=== PATIENT | male | born 1970 | race Caucasian/White ===

== ENCOUNTER 2017-01-23 15:15 | Inpatient (IN) | payer OTHER ==
--- NOTE | ~2017-01-23 | HP ---
History And Physical [place] [id number] [facility] [place]. [address] NAME: KAYLEN SULLIVAN : 72 STATUS : ADM IN [facility]#: [id number] AGE: 46 ADM/REG DATE : 01/23/17 MR#: [id number] REPORT SERV DATE: 01/24/17 DICTATED BY: IRINA RUVALCABA DATE: 01/23/17 REPORT STATUS : Draft TRANSCRIBED BY: MODL DATE: 01/23/17 DATE OF ADMISSION: 01/23/2017 Please note that there was an already a handwritten note that was on the chart prior to the patient being brought to surgery, but I would like to have it in verbally dictated form as well. CHIEF COMPLAINT: Dog attack earlier today at 8:30 hours with multiple injuries, right upper extremity. HISTORY OF PRESENT ILLNESS: Kaylen Sullivan is a 46-year-old tycdj-fozp-nyadnhnw male, disabled secondary to multiple medical problems, including several psychiatric diseases including bipolar and schizophrenia. Earlier today, he was at a bus stop with his girlfriend and their common daughter when he was attacked by his girlfriend's brother's half pit bull half Kendrick dog. He sustained multiple bites about the right upper extremity and the lower lumbar area (scratches) and was immediately brought himself to [facility] where he waited in the ER waiting room until mid afternoon. He then left and came immediately to [facility] where he was quickly seen. His tetanus has already been updated. He was given IV antibiotics. He states that he is not a diabetic anymore, but his blood sugars upon arrival were over 200. He could not move his fingers and had loss of sensation of small fingers. No previous injuries to his right upper extremity. PAST MEDICAL HISTORY: 1. Schizophrenia. 2. Bipolar II. 3. Hypertension. 4. For history of diabetes. 5. Inflammatory bowel disease. 6. Obstructive sleep apnea with CPAP. 7. COPD. 8. Tobacco abuse, was smoking 1-1/2 packs a day, now down to half pack per day. PAST SURGICAL HISTORY: C-spine multi level ACDF. REVIEW OF SYSTEMS: See past medical history, past surgical history. Otherwise, negative for recent constitutional symptoms such as weight gain or weight loss, fever or chills, bleeding problems, increased thirst or lethargy, increased polydipsia or polyuria. Denies chest pain, shortness of breath, or productive cough. ALLERGIES: NO KNOWN DRUG ALLERGIES. SOCIAL HISTORY: Smokes a half pack per day. Does not work. Does engage in strenuous activities. PHYSICAL EXAMINATION: History And Physical [address] [place]. [address] NAME: KAYLEN SULLIVAN : 72 STATUS : ADM IN [facility]#: [id number] AGE: 46 ADM/REG DATE : 01/23/17 MR#: [id number] REPORT SERV DATE: 01/24/17 DICTATED BY: IRINA RUVALCABA DATE: 01/23/17 REPORT STATUS : Draft TRANSCRIBED BY: CRICKET DATE: 01/23/17 GENERAL: A 46-year-old male lying in bed, in mild distress. VITAL SIGNS: Blood pressure 123/84, heart rate 89, respiratory rate 20, temperature 36.9, O2 saturation on room air 95%. HEENT: Wears corrective lenses. Teeth in poor repair. C-spine with well-healed anterior incision used for anterior ACDF left side of the neck. Limited range of motion. The left shoulder elbow, wrist, and all fingers have functional range of motion while the right upper extremity is held close to the body. The bandages were taken off the arms and there are multiple dog bites up from the proximal arm down into the forearm and palm. There is dried blood on the deeper dressings and these could not be removed without severe pain and therefore attempt to remove them were aborted. Nonetheless, he had multiple lacerations on the back of his hand and in the volar forearm with one leading into the index finger and one leading into the ring/middle finger from both in the mid palm areas. There is very limited if any active finger flexion and all fingers with decreased sensation. There is one large horizontal laceration in the volar forearm some 5 cm to 7 cm proximal to the volar wrist crease and this is horizontal and there is muscle fiber sticking out of this wound. The TLS spine has wounds on the lumbar areas which are keeping with abrasions, but no open cuts. The lower extremities are spared with no significant cuts, but some abrasions present. Both hips, knees, and ankles are nontender to palpation and no pain with passive range of motion. X-rays two views of the right forearm shows no retained animal teeth or foreign body. LABS: WBC 16, H and H is 15.9 and 43.7, platelets 177. Electrolytes sodium 143, potassium 3.9, chloride 109, bicarbonate 24, BUN 17, creatinine 1.22, blood glucose 221. IMPRESSION: Dog bite, right upper extremity, multiple sites with possible nerve, artery, and definitely muscle damage. PLAN: The patient will need to undergo irrigation and debridement of wounds and repair any damaged artery, nerves, or muscle. However, it is already many hours out from the initial injury and so he will need to stay overnight for some IV antibiotics. CONSULT: Hospitalist to help manage elevated blood glucose levels noted on admission labs. JOANNE/PENNYL Irina Ruvalcaba M.D. / [id number] CC: Irina Ruvalcaba M.D.
--- NOTE | ~2017-01-23 | OP ---
Record Of Operation [facility] [address] [place]. [address] NAME: KAYLEN PENALOZA : 72 STATUS : ADM IN PAT#: [id number] AGE: 46 ADM/REG DATE : 01/23/17 MR#: [id number] REPORT SERV DATE: 01/24/17 DICTATED BY: IRINA RUVALCABA DATE: 01/23/17 REPORT STATUS : Draft TRANSCRIBED BY: MODL DATE: 01/23/17 DATE OF PROCEDURE: 01/23/2017 DIAGNOSIS: Dog attack with multiple upper extremity wounds. PROCEDURE: Right upper extremity multiple dog bite wounds exploration and irrigation and debridement. All wounds penetrated into muscle area: Arm (triceps). Forearm: Volarly, FCU muscle belly and dorsally common extensor muscles. Hand: Palmar lumbrical muscles to the index and middle finger, palmarly and dorsally the interosseous muscles. Irrigation and debridement of all wounds and wound closure: Arm lacerations: Posterior medially 7 cm, posterior lateral 5 cm. Forearm: Volar 2 cm, dorsal 1.5 cm. Hand: Palmar 4 and 7 cm, dorsal 3 cm. Irrigation of right lower lumbar abrasions. PHYSICIAN: Irina Ruvalcaba M.D. HAND EDGER: Sreena. ANESTHESIA: General. ESTIMATED BLOOD LOSS: 50 mL. COMPLICATIONS: None. DISPOSITION: The patient tolerated the procedure well, was brought to recovery room in stable condition. PROCEDURE NOTE: The patient was brought to the operating room and placed in supine position. After general anesthesia was administered, the right upper extremity was prepped and draped in usual sterile manner. A surgical timeout was performed and all were in agreement. The wounds were then all irrigated with normal saline via pulse lavage, and some of the wounds needed to be lengthened both proximally and distally for further evaluation. Retractors were placed and in the arm, the posterior medial and posterior lateral triceps were partially cut and in the forearms, the FCU volarly and the common extensor muscles dorsally were cut. These muscles were debrided with pickup and scissors. In the palm, the interosseous muscles to the index and middle finger were debrided and dorsally the interosseous muscles of the middle ring and middle index fingers were irrigated and debrided. Afterwards exploration of the wounds revealed an intact median nerve and a slightly bruised ulnar nerve. The vessels on the volar forearm were also intact. Distally, the digital nerves were all intact and no flexor tendons appear to be involved. After irrigating and debriding each wound, the wounds were then loosely closed with the nylon suture and a sterile bulky dressing was applied. A volar splint was applied to the forearm and the arm was later placed in a sling. The patient was then moved over onto his left lateral decubitus position where the posterior abrasions were then irrigated and cleaned, Record Of Operation [place] [id number] [facility] [place] [place]. [address] NAME: KAYLEN PENALOZA : 72 STATUS : ADM IN [facility]#: [id number] AGE: 46 ADM/REG DATE : 01/23/17 MR#: [id number] REPORT SERV DATE: 01/24/17 DICTATED BY: IRINA RUVALCABA DATE: 01/23/17 REPORT STATUS : Draft TRANSCRIBED BY: CRICKET DATE: 01/23/17 and then bandage were applied. The patient was then put back in the supine position and after general anesthesia was removed, the patient was ready to be brought to recovery room, having tolerated the procedure quite well. JOANNE/CRICKET Irina Ruvalcaba M.D. / [id number] CC: Irina Ruvalcaba M.D.
--- NOTE | ~2017-01-23 | CN ---
Consultation Report [facility] [address] [place]. [address] NAME: KAYLEN PENALOZA : 72 STATUS : ADM IN [facility]#: [id number] AGE: 46 ADM/REG DATE : 01/23/17 MR#: [id number] REPORT SERV DATE: 01/24/17 DICTATED BY: ERICA FERRELL DATE: 01/23/17 REPORT STATUS : Draft TRANSCRIBED BY: MODL DATE: 01/23/17 CONSULTATION REPORT DATE OF CONSULTATION: 01/23/2017 REASON FOR CONSULTATION: Hypertension and diabetes management. HISTORY OF PRESENT ILLNESS: This is a pleasant 46-year-old gentleman with a history of hypertension, diabetes mellitus type 2, and COPD with ongoing tobacco use who presents today with extensive injuries from multiple dog bites. He reports severe injuries and lacerations to right upper extremity from hand all the way up to the axillary region. The patient underwent irrigation and debridement of right upper extremity with artery and tendon repair per Dr. Guerra today. The patient currently complains of pain to right upper extremity, which is not being controlled with current analgesic regimen. He denies fever or chills. He denies shortness of breath. He actually denies any complaints except severe pain to right upper extremity. Hospitalist service was consulted for medical management. Please note, the patient denies having a primary care provider, but reports multiple medical problems, none of which are currently being treated. PAST MEDICAL HISTORY: Bipolar disorder, depression, PTSD, irritable bowel disease, hypertension, schizophrenia, obstructive sleep apnea, compliant with CPAP, COPD, tobacco dependency disorder, and diabetes mellitus type 2. PAST SURGICAL HISTORY: An anterior cervical diskectomy and fusion (ACDF). ALLERGIES: NO KNOWN DRUG ALLERGIES. HOME MEDICATIONS: The patient denies taking any home medications. SOCIAL HISTORY: He lives with girlfriend. Smokes approximately 1-1.5 packs of cigarettes daily for 38 years. He does report that he started smoking at the age of 8. Denies alcohol or illicit drug use. He is disabled. FAMILY HISTORY: Significant for diabetes mellitus. Negative for hypertension, coronary artery disease, or CVA. REVIEW OF SYSTEMS: A complete review of systems was obtained and is negative except as noted in past and present history. PHYSICAL EXAMINATION: VITAL SIGNS: Please note these vital signs were obtained preoperatively at 1345 hours. Blood pressure 123/84, pulse 89, respirations 20, temperature 98.5, and oxygen saturation 95% on room air. Consultation Report [place] [id number] [place]. [address] NAME: KAYLEN PENALOZA : 72 STATUS : ADM IN PAT#: [id number] AGE: 46 ADM/REG DATE : 01/23/17 MR#: [id number] REPORT SERV DATE: 01/24/17 DICTATED BY: ERICA FERRELL DATE: 01/23/17 REPORT STATUS : Draft TRANSCRIBED BY: CRICKET DATE: 01/23/17 GENERAL: Reveals a well-developed, well-nourished white male. Lying in bed, in no acute distress. He does appear to be uncomfortable and displays some grimacing secondary to pain and discomfort of right upper extremity. He is alert and oriented. He is pleasant and cooperative with examination. HEENT: Head: Normocephalic, atraumatic. Pupils equal, round, reactive to light. Extraocular muscles intact. Sclerae anicteric. Oropharynx crowded and difficult to assess but appears clear. Moist oral mucosa noted. NECK: Supple. No jugular venous distention appreciated. RESPIRATORY: Lungs clear to auscultation anteriorly but diminished at bilateral bases. Respirations even and nonlabored on room air. CARDIOVASCULAR: S1 and S2 noted. Mildly tachycardic but regular. No murmur, rub, or gallop appreciated. ABDOMEN: Obese. Soft, nontender, nondistended. Normoactive bowel sounds. EXTREMITIES: No clubbing, cyanosis, or edema noted to bilateral lower extremities. Palpable pedal pulses bilaterally. Unable to assess right upper extremity due to it being wrapped from hand up to axilla and in sling. SKIN: Warm and dry. Good color. Again, unable to assess multiple lacerations, as they are all dressed. NEUROLOGIC: Alert and oriented x3. Unable to assess right upper extremity function. Formal gait not assessed. PSYCH: Appropriate mood and affect. LABORATORY AND DIAGNOSTIC DATA: WBC 13491, hemoglobin 15.9, hematocrit 43.7, and platelets 177,000. Protime 13.2 and INR 1.0 respectively. Comprehensive metabolic panel within normal limits with the exception of elevated glucose at 221. Portable chest x-ray; no acute cardiopulmonary abnormality noted. Right forearm x-ray shows soft tissue gas in the region of injury without fracture or radio- opaque foreign body. No EKG or urinalysis available. IMPRESSION: 1. Multiple dog bites with most extensive lacerations to right upper extremity, status post irrigation and debridement per Orthopedic Surgery today. 2. Acute, postoperative right upper extremity pain. 3. Diabetes mellitus type 2 with hyperglycemia. 4. Hypertension. 5. Leukocytosis likely secondary to multiple dog bites with most extensive lacerations to right upper extremity, status post irrigation and debridement per Orthopedic Surgery today. 6. Tachycardia likely secondary to pain. Consultation Report [place] [id number] [facility] [place]. [address] NAME: KAYLEN PENALOZA : 72 STATUS : ADM IN [facility]#: [id number] AGE: 46 ADM/REG DATE : 01/23/17 MR#: [id number] REPORT SERV DATE: 01/24/17 DICTATED BY: ERICA FERRELL DATE: 01/23/17 REPORT STATUS : Draft TRANSCRIBED BY: CRICKET DATE: 01/23/17 7. Chronic obstructive pulmonary disease appears stable with ongoing tobacco dependency disorder. 8. Obstructive sleep apnea compliant with CPAP with probable obesity hypoventilation syndrome. 9. History of bipolar disorder/schizophrenia/depressions/post-traumatic stress disorder, untreated. 10.Medical noncompliance. 11.Obesity. PLAN: The patient will be monitored via telemetry. We will monitor glucose and give insulin per sliding scale. I will check hemoglobin A1c, procalcitonin, a BNP, and urinalysis as well as an EKG. CPAP per respiratory therapy, as the patient left his at home. Oxygen support and bronchodilation per protocol. Nicotine and electrolyte replacement per protocol. I have ordered p.r.n. IV antihypertensive for elevated blood pressure, which appears to be controlled at this time. I will order PA and lateral chest x-ray in the morning given hypoxia and leukocytosis. I will defer anticoagulation/DVT prophylaxis to Orthopedic Surgery. Case Management consulted to assist with discharge planning needs, including establishing primary care provider. ANNETTA/CRICKET Erica Ferrell NP / [id number] CC: Stan Guerra M.D.
[2017-01-23 14:50] LABS: BASOPHILS 0 %; EOSINOPHILS 0 %; ER CBC TAT 0 Hrs 08 Mins; HEMATOCRIT 43.7 % (40.0-51.0); HEMOGLOBIN 15.9 g/dL (13.6-17.8); IMMATURE GRANULOCYTES 0.2 %; IMMATURE GRANULOCYTES ABSOLUTE 0.03 10/3/uL (0.0-0.11); LYMPHOCYTES 8.9 %; LYMPHOCYTES ABSOLUTE 1.45 10/3/uL (0.67-4.30); MEAN CORPUS HGB CONC 36.4 g/dL (32.0-36.0); MEAN CORPUSCULAR HEMOGLOB 31.2 pg (26.0-34.0); MEAN CORPUSCULAR VOLUME 85.7 fL (80-100); MONOCYTES 3.1 %; MONOCYTES ABSOLUTE 0.51 10/3/uL (0.21-1.20); NEUTROPHILS 87.8 %; NEUTROPHILS ABSOLUTE 14.34 10/3/uL (2.02-8.40); PLATELET COUNT 177 10/3/uL (150-400); RBC DISTRIBUTION WIDTH 13.1 % (12.0-16.0); WHITE BLOOD CELLS 16.3 10/3/uL (4.5-10.5)
[2017-01-23 14:51] LABS: MANUAL DIFF NO %
[2017-01-23 14:58] LABS: PARTIAL THROMBO TIME 23.4 SEC (22.5-37.2); PROTIME (NOT ORD) 13.2 SEC (12.0-14.5)
[2017-01-23 15:06] LABS: A/G RATIO 1.1 (0.7-1.9); ALBUMIN 4.2 G/DL (3.5-5.0); ALKALINE PHOSPHATASE 78 U/L (45-117); BUN (BLOOD UREA NITROGEN) 17 MG/DL (6-23); CALCIUM, SERUM 9.4 MG/DL (8.5-10.4); CHLORIDE, SERUM 109 MMOL/L (96-112); CO2 (CARBON DIOXIDE) 24 MMOL/L (24-34); CREATININE 1.22 MG/DL (0.70-1.30); GFR AFRICAN AMERICAN 82 ML/MIN (>=60); GFR NON AFRICAN AMERICAN 71 ML/MIN (>=60); GLOBULIN 3.7 G/DL (2.5-4.1); GLUCOSE, SERUM 221 MG/DL (60-99); POTASSIUM, SERUM 3.9 MMOL/L (3.5-5.3); SGOT(AST) 24 U/L (5-40); SGPT(ALT) 52 U/L (5-65); SODIUM, SERUM 143 MMOL/L (135-148); TOTAL BILIRUBIN 0.7 MG/DL (0-1.2); TOTAL PROTEIN 7.9 G/DL (6.0-8.5)
[2017-01-24 01:45] LABS: PROCALCITONIN <0.05 ng/mL (<0.5)
[2017-01-24 05:44] LABS: BASOPHILS 0.1 %; BASOPHILS ABSOLUTE 0.01 10/3/uL (0.0-0.16); EOSINOPHILS 0 %; HEMATOCRIT 40.8 % (40.0-51.0); HEMOGLOBIN 14.5 g/dL (13.6-17.8); IMMATURE GRANULOCYTES 0.2 %; IMMATURE GRANULOCYTES ABSOLUTE 0.02 10/3/uL (0.0-0.11); LYMPHOCYTES 17.3 %; LYMPHOCYTES ABSOLUTE 1.94 10/3/uL (0.67-4.30); MEAN CORPUS HGB CONC 35.5 g/dL (32.0-36.0); MEAN CORPUSCULAR HEMOGLOB 30.9 pg (26.0-34.0); MEAN CORPUSCULAR VOLUME 86.8 fL (80-100); MEAN PLATELET VOLUME 10.6 fL (9.2-13.0); MONOCYTES 8.5 %; MONOCYTES ABSOLUTE 0.95 10/3/uL (0.21-1.20); NEUTROPHILS 73.9 %; NEUTROPHILS ABSOLUTE 8.27 10/3/uL (2.02-8.40); PLATELET COUNT 169 10/3/uL (150-400); RBC DISTRIBUTION WIDTH 13.1 % (12.0-16.0); WHITE BLOOD CELLS 11.2 10/3/uL (4.5-10.5)
[2017-01-24 05:47] LABS: MANUAL DIFF NO %
[2017-01-24 05:59] LABS: BUN (BLOOD UREA NITROGEN) 11 MG/DL (6-23); CALCIUM, SERUM 8.9 MG/DL (8.5-10.4); CHLORIDE, SERUM 106 MMOL/L (96-112); CO2 (CARBON DIOXIDE) 25 MMOL/L (24-34); CREATININE 0.93 MG/DL (0.70-1.30); GFR AFRICAN AMERICAN 115 ML/MIN (>=60); GFR NON AFRICAN AMERICAN 99 ML/MIN (>=60); GLUCOSE, SERUM 147 MG/DL (60-99); PHOSPHORUS, SERUM 2.8 MG/DL (2.5-4.5); POTASSIUM, SERUM 3.8 MMOL/L (3.5-5.3); SODIUM, SERUM 140 MMOL/L (135-148)
[2017-01-24 06:44] LABS: B NATRIURETIC PEPTIDE (BNP) 17.1 PG/ML (< 100.0)
[2017-01-24 08:05] LABS: GLYCOHEMOGLOBIN (HbA1c) 6.7 % (4.7-6.1)
[2017-01-25] MEDS ORDERED: PRIN5 PO (10:53)
[2017-01-25] MEDS ORDERED: PROTONIX PO (10:55)
[2017-01-25] MEDS ORDERED: GLUCPH PO (10:59)
[2017-01-25] MEDS ORDERED: AUG875 PO (10:59)
[2017-01-25] MEDS ORDERED: PERCOCET 10/3251 TAB PO (11:01)
== END 2017-01-25 12:56 | disposition home or self-care (01) | DRG 581 ==
LOC: ER 15:15 → 2SO 20:23
PROVIDERS: Emergency Medicine; Nurse Practitioner; Orthopaedic Surgery Hand Surgery
PROC: 0KB70ZZ Excision of Right Upper Arm Muscle, Open Approach (ICD-10-PCS; 2017-01-23)
PROC: 0KB90ZZ Excision of Right Lower Arm and Wrist Muscle, Open Approach (ICD-10-PCS; 2017-01-23)
PROC: 3E10X8Z Irrigation of Skin and Mucous Membranes using Irrigating Substance (ICD-10-PCS; 2017-01-23)
PROC: 0KBC0ZZ Excision of Right Hand Muscle, Open Approach (ICD-10-PCS; principal; 2017-01-23 15:00)
DX: S51.851A Open bite of right forearm, initial encounter (principal); E11.65 Type 2 diabetes mellitus with hyperglycemia; G47.36 Sleep related hypoventilation in conditions classified elsewhere; Z99.81 Dependence on supplemental oxygen; F20.9 Schizophrenia, unspecified; I10 Essential (primary) hypertension; S61.250A Open bite of right index finger without damage to nail, initial encounter; S61.252A Open bite of right middle finger without damage to nail, initial encounter; W54.0XXA Bitten by dog, initial encounter; F31.9 Bipolar disorder, unspecified; K58.9 Irritable bowel syndrome, unspecified; G47.33 Obstructive sleep apnea (adult) (pediatric); J44.9 Chronic obstructive pulmonary disease, unspecified; F17.219 Nicotine dependence, cigarettes, with unspecified nicotine-induced disorders; F43.10 Post-traumatic stress disorder, unspecified; Y92.9 Unspecified place or not applicable; Z98.890 Other specified postprocedural states; Z83.3 Family history of diabetes mellitus; Z91.14 Patient's other noncompliance with medication regimen
CPT/HCPCS: 71010; 71020; 73090-RT; 80048; 80053; 82962; 83036; 83735; 83880; 84100; 84145; 85025; 85610; 85730; 90714; 93005; 94640; 96374; 96375; 97166-GO; 99284; A9270-GY; G8987-CK-GO; G8988-CJ-GO; J0295; J1170; J2175; J2250; J2405; J2543; J2710; J3010; J3370

== ENCOUNTER 2017-01-30 13:55 | Day surgery (SDC) | payer OTHER ==
--- NOTE | ~2017-01-30 | OP ---
Record Of Operation [facility] [address] [place]. [address] NAME: KAYLEN PENALOZA JR : 72 STATUS : REG [facility] PAT#: [id number] AGE: 46 ADM/REG DATE : 01/30/17 MR#: [id number] REPORT SERV DATE: 01/30/17 DICTATED BY: IRINA RUVALCABA DATE: 01/30/17 REPORT STATUS : Draft TRANSCRIBED BY: MODL DATE: 01/30/17 DATE OF PROCEDURE: 01/30/2017 PREOPERATIVE DIAGNOSIS: Right upper extremity multiple lacerations/cut due to dog attack, 01/23/2017, requiring irrigation, debridement, and wound closure later that day, now with worsening pain over the past 24-48 hours. POSTOPERATIVE DIAGNOSIS: Right upper extremity multiple lacerations/cut due to dog attack, 01/23/2017, requiring irrigation, debridement, and wound closure later that day, now with worsening pain over the past 24-48 hours, with no evidence of infection of the of the wounds. PROCEDURES: Right upper extremity: 1. Exploration of right medial arm volar forearm dorsal hand and volar hand with cultures, irrigation, and wound closure. No evidence of infection. SURGEON: Irina Ruvalcaba M.D. MUFFLER MECHANIC: Roxann Abdi. ANESTHESIA: General. ESTIMATED BLOOD LOSS: Minimal. COMPLICATIONS: None. DISPOSITION: The patient tolerated the procedure well, was ready to be brought to recovery room in stable condition. PROCEDURE NOTE: The patient was brought to the operating room and placed in supine position. After general anesthesia was administered, the right upper extremity distal preaxilla was prepped and draped in usual sterile manner. A surgical timeout was performed and all were in agreement. A tourniquet was placed around the right proximal arm. The right upper extremity was exsanguinated using Esmarch and the tourniquet was inflated. Wounds were inspected and the ones of questionable viability were examined. This included the right medial arm, right volar forearm, the right dorsal hand, and the right palmar hand. Sutures were removed. The wounds were explored and serous drainage was obtained from each wound, but there was no evidence of infection. Cultures were taken, and each wound was then irrigated with copious amounts of normal saline via pulse lavage. Then, the wounds were closed with nylon suture. A sterile dressing was applied. Tourniquet was released and a long-arm splint was applied. The patient's arm was placed in a sling, and the patient was brought to recovery room in stable condition. Record Of Operation [address] [place]. [address] NAME: KAYLEN PENALOZA JR : 72 STATUS : REG [facility] PAT#: [id number] AGE: 46 ADM/REG DATE : 01/30/17 MR#: [id number] REPORT SERV DATE: 01/30/17 DICTATED BY: IRINA RUVALCABA DATE: 01/30/17 REPORT STATUS : Draft TRANSCRIBED BY: CRICKET DATE: 01/30/17 /CRICKET Irina Ruvalcaba M.D. / [id number] CC: Irina Ruvalcaba M.D.
[~2017-01-30 13:55] MED LIST: AUG875 PO; GLUCPH PO; PERCOCET 10/3251 TAB PO; PRIN5 PO; PROTONIX PO
== END 2017-01-30 21:17 | disposition home or self-care (01) ==
LOC: SDC 13:55
PROVIDERS: Orthopaedic Surgery Hand Surgery
PROC: 0H9FXZZ Drainage of Right Hand Skin, External Approach (ICD-10-PCS; principal; 2017-01-30 20:15)
DX: T81.89XA Other complications of procedures, not elsewhere classified, initial encounter (principal); F43.10 Post-traumatic stress disorder, unspecified; G47.33 Obstructive sleep apnea (adult) (pediatric); F41.9 Anxiety disorder, unspecified; E11.9 Type 2 diabetes mellitus without complications; I10 Essential (primary) hypertension; E78.00 Pure hypercholesterolemia, unspecified; J44.9 Chronic obstructive pulmonary disease, unspecified; F20.9 Schizophrenia, unspecified; K58.9 Irritable bowel syndrome, unspecified; Z79.2 Long term (current) use of antibiotics; Z79.891 Long term (current) use of opiate analgesic; Z79.899 Other long term (current) drug therapy
CPT/HCPCS: 87070; 87075; 87205; A9270-GY; J0690; J1170; J1885; J2250; J2405; J3010